=== PATIENT | male | born 1980 | race Caucasian/White ===

== ENCOUNTER → 2021-05-11 09:37 | Outpatient (CLI) | payer BC, SELFPAY | LOC: PSN 09:37 | PROVIDERS: Referring Provider Nurse Practitioner Family; Visit Provider Nurse Practitioner Family | DX: R00.0 Tachycardia, unspecified (principal) | CPT/HCPCS: 93225; 93226 ==

== ENCOUNTER → 2021-05-29 13:06 | Outpatient (CLI) | payer BC, SELFPAY ==
--- NOTE | 2021-05-29 13:15 | ECHOCS_ITS ---
Reason For Study: Tachycardia Procedure This was a 2D Doppler, Color Flow transthoracic echocardiogram. The study was technically difficult. Exam performed in department. Left Ventricle Normal LV size. Left ventricular systolic function is normal. The estimated ejection fraction is 55 %. Stage 1 diastolic dysfunction. No regional wall motion abnormalities noted. Right Ventricle Normal RV size. Normal systolic function. Atria Normal left atrium. Normal right atrium. Mitral Valve Normal mitral valve. Tricuspid Valve Normal tricuspid valve. Aortic Valve Normal aortic valve. Pulmonic Valve The pulmonic valve is not well visualized. Great Vessels Normal aortic root. The pulmonary artery is normal size. Normal inferior vena cava. Pericardium/Pleural No pericardial effusion. Medication 22 gauge I.V. with prn adaptor inserted into right arm. Diluted definity 2ml given slow IV push to enhance endocardial definition. MMode/2D Measurements & Calculations LVIDd: 4.3 cm IVSd: 1.4 cm Ao root diam: 2.9 cm LVIDs: 3.5 cm LVPWd: 1.1 cm RVDd: 3.4 cm FS: 20.2 % LAV(MOD-bp): 30.7 ml LVAd ap4: 31.7 cm2 LVAd ap2: 25.2 cm2 LAV(MOD-bp) Indexed: 12.3 ml/m2 LVLd ap4: 8.0 cm LVLd ap2: 8.1 cm LAV(MOD-sp2): 32.2 ml EDV(MOD-sp4): 100.7 ml EDV(MOD-sp2): 66.1 ml LAV(MOD-sp4): 28.8 ml EDV(sp4-el): 106.1 ml EDV(sp2-el): 66.8 ml LVAs ap4: 21.1 cm2 LVAs ap2: 16.0 cm2 LVLs ap4: 7.0 cm LVLs ap2: 7.3 cm ESV(MOD-sp4): 52.1 ml ESV(MOD-sp2): 28.5 ml ESV(sp4-el): 53.5 ml ESV(sp2-el): 29.5 ml EF(MOD-sp4): 48.3 % EF(MOD-sp2): 56.9 % EF(sp4-el): 49.6 % SV(MOD-sp4): 48.7 ml SV(MOD-sp2): 37.7 ml SV(sp4-el): 52.7 ml LA A4 area: 12.3 cm2 LA dimension(2D): 3.8 cm RA A4 area: 12.1 cm2 Doppler Measurements & Calculations MV E max ridge: 94.4 cm/sec Lat Peak E' Ridge: 12.3 cm/sec Med Peak E' Ridge: 5.9 cm/sec MV A max ridge: 107.6 cm/sec E/E' lat: 7.7 E/E' med: 15.9 MV E/A: 0.88 Ao V2 max: 126.7 cm/sec LV V1 max: 107.6 cm/sec PA V2 max: 114.4 cm/sec Ao max P.4 mmHg LV V1 max P.6 mmHg ECHO/Echo Complete W/ Contrast Interpretation Summary Normal LV size. Left ventricular systolic function is normal. The estimated ejection fraction is 55 %. Stage 1 diastolic dysfunction. Contrast injection was performed. Ordering Physician: Librado Yee/Kareem Marshall Referring Physician: Librado Yee Performed By: Meagan Timmons RDCS
== END ==
LOC: CVS 13:07
PROVIDERS: Referring Provider Nurse Practitioner Family; Visit Provider Nurse Practitioner Family
DX: R00.0 Tachycardia, unspecified (principal); I10 Essential (primary) hypertension
CPT/HCPCS: 93306; Q9957; A4216; C8929; J3490

== ENCOUNTER 2021-09-14 11:09 | Outpatient (CLI) | payer OTHER, SELFPAY ==
[2021-09-14 12:12] LABS: T4 Free Direct 1.32 ng/dL (0.76-1.46); Thyroid Stim Hormone (TSH) 1.35 uIU/mL (0.358-3.74)
== END 2021-09-14 23:59 | disposition short-term general hospital (02) ==
LOC: LAB 11:12
PROVIDERS: Referring Provider Nurse Practitioner Family; Visit Provider Nurse Practitioner Family
DX: R00.0 Tachycardia, unspecified (principal); I10 Essential (primary) hypertension; E78.5 Hyperlipidemia, unspecified
CPT/HCPCS: 36415; 84439; 84443

== ENCOUNTER 2021-09-23 06:53 | Outpatient (CLI) | payer OTHER, SELFPAY ==
--- NOTE | 2021-09-23 18:09 | STRESSREP_ITS ---
Stress Test Report Exercise myocardial perfusion stress test. 41-year-old man with a history of chest discomfort. Stress protocol: Resting EKG demonstrates normal sinus rhythm with a rate of 74 bpm normal intervals are noted resting blood pressure is 118/78 mmHg. T wave inversion is noted in aVL and V2. The patient exercised according to regular Dale protocol for total duration of 3 minutes and 30 seconds. The maximum heart rate attained was 169 bpm which was 94% of max impact at heart rate the maximum workload was 5.8 metabolic equivalents. At rest the T wave inversions noted above were noted. And at peak exercise there were no obvious ST or T wave changes noted to suggest ischemia. The test was terminated due to dyspnea and mild chest pain. The dyspnea appeared to be moderately severe. The peak blood pressure was 160/72 mmHg. Myocardial perfusion protocol. 14.7 mCi of technetium 99m sestamibi was injected at rest. Patient exercised ac cording to regular Dale protocol for total duration of 3 minutes and 30 seconds. At peak exercise 44.9 mCi of technetium 99m sestamibi was injected stress images were obtained stress and rest images were reconstructed and compared in the short axis vertical long and horizontal long axis. Gated images were also obtained per Perfusion SPECT analysis: Review of the stress images demonstrate a normal cardiac silhouette size. There is a medium size defect noted involving the anterior septal wall apex as well as a small perfusion defect noted in the basal inferior wall. The resting images demonstrate complete reversibility of the basal inferior wall defect and moderate reversibility noted in the anteroseptal and apical wall defect. The above is suggestive of anterior and basal inferior ischemia. Cardiomyopathy cannot be completely excluded. Gated SPECT analysis: The gated ejection fraction is 42%. Conclusion: Abnormal exercise myocardial perfusion stress test at a moderate workload with evidence of anteroseptal and apical ischemia, and basal inferior ischemia. Reduced ejection fraction.
== END 2021-09-23 23:59 | disposition short-term general hospital (02) ==
LOC: CVS 06:56
PROVIDERS: Referring Provider Nurse Practitioner Family; Visit Provider Nurse Practitioner Family
DX: R07.9 Chest pain, unspecified (principal); R00.0 Tachycardia, unspecified; I10 Essential (primary) hypertension; E78.5 Hyperlipidemia, unspecified
CPT/HCPCS: 78452; 93017; A9500; A4216

== ENCOUNTER 2021-09-30 08:34 | Observation (INO) | payer OTHER, SELFPAY ==
[2021-09-25 13:09] LABS: Absolute Lymphocyte Count 3.27 X10^3/uL (0.83-4.51); Absolute Neutrophil Count 5.2 X10^3/uL (2.0-7.7); Basophil# 0.06 X10^3/uL; Basophil% 0.6 % (0-1); Eosinophil# 0.19 X10^3/uL; Hematocrit 42.7 % (40-54); Hemoglobin 15.1 g/dL (13.0-16.5); Lymphocyte # 3.27 X10^3/ul (0.83-4.51); Lymphocyte % 34.2 % (19-41); Mean Corp Hgb Conc 35.4 g/dL (32-36); Mean Corpuscular Hgb 30.8 pg (27.0-32.0); Mean Corpuscular Volume 87.1 fL (80-94); Mean Platelet Vol. 10.1 fl (6.2-12.0); Monocyte# 0.78 X10^3/uL; Monocyte% 8.2 % (0-10); NRBC Flagged by Analyzer 0 % (0-5); Neutrophil # 5.21 X10^3/uL (2.7-7.7); Neutrophil % 54.4 % (47-70); Platelet Count 282 K/mm3 (150-450); RBC Distribution Width CV 12.1 % (11.6-14.6); RBC Distribution Width SD 37.8 fl (35.1-43.9); White Blood Count 9.6 K/mm3 (4.4-11.0)
[2021-09-25 13:41] LABS: Anion Gap 7 (5-15); BUN 11 mg/dL (7-18); Calcium,Total 8.8 mg/dL (8.5-10.1); Chloride 108 mmol/L (98-107); EST Glomerular Filtration Rate 78 mL/min (>60); Est Glom Filt Rate - Afr Amer 94 mL/min (>60); Glucose 263 mg/dL (74-106); Potassium 4.2 mmol/L (3.5-5.1); Sodium Level 135 mmol/L (136-145)
[2021-09-29 08:11] VITALS: BMI 41.8
[2021-09-30] VITALS (17 sets, daily range): BP systolic 118–147; BP diastolic 73–105; PULSE 81–97; RESP 16–18; TEMP 36.4–36.6; O2SAT 95–99; BMI 41.5
--- NOTE | 2021-09-30 08:46 | CL.D_ITS ---
Patient Name: RAQUEL HERNÁNDEZ Study Date: 09/30/2021 Performing: Kareem Marshall MD Ht: 70.07 inches 178 cm : 1980 Wt: 291.01 lbs 132 kg Age: 41 Gender: male BSA: 2.45 PROCEDURE(S) PERFORMED DC01-(10602)LHC/COR/LV DC11-(78267)AO ROOT ANGIO WITH HEART CATH CLINICAL PROFILE AND INDICATIONS Indications: Suspected CAD Heart Failure: None Stress/Imaging Date: 09/19/20 CAD Presentations: Unstable angina. CONCLUSIONS Significant LAD disease and moderately severe diagonal vessel disease Anomalous LCX origin RECOMMENDATIONS Referred for immediate PCI DESCRIPTION OF PROCEDURE The patient arrived to the procedure lab. The risks and benefits of the procedure as well as a full d escription of our services here and current unavailability of surgical backup were fully explained to the patient and/or their significant other prior to the catheterization. The Timeout was completed, verifying the correct patient and procedure. The patient's procedural site was prepped and draped in the usual fashion. Local anesthetic was given subcutaneously to right radial region with Lidocaine 2% . Using a modified Seldinger technique, arterial access was obtained via the right radial artery, a 6 Fr sheath was inserted. Right Coronary Artery selective angiography was then performed in multiple v iews using a 5 Fr. 4.0 [place] catheter. Left Coronary Artery selective angiography was performed in mu ltiple views using a 5 Fr. 4.0 [place] catheter. CORONARY ANGIOGRAPHY DOMINANCE: Right Dominant LEFT HEART ASSESSMENT Left Ventricular Ejection Fraction: by Echo 55 % Normal LV wall motion Normal Left Ventricular systolic function LEFT MAIN: Angiographically normal LEFT ANTERIOR DESCENDING ARTERY: MID LAD: 80 % Stenosis DIAGONAL 2: Proximal - 80 Percent bifurcating lesion. 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 RIGHT CORONARY ARTERY: Ostial 60% stenosis with rest of the vessel with luminal irregularities of librado roximately 30 to 40% COMPLICATIONS PROCEDURE MEDICATIONS Versed 1 mg IV Fentanyl 50 mcg IV Versed 1 mg IV Versed 1 mg IV Oxygen: 2 L/min via nasal cannula Brilinta 180 mg PO @ 09/30/2021 08:28:26 Heparin 7000 unit(s) IV 09/30/2021 08:37:19 Heparin given IA 09/30/2021 08:38:49 Verapamil 2.5mg, Ntg 100mcgs, 3000 units of Heparin given IA 09/30/2021 08:38:49 SUMMARY OF HEMODYNAMIC DATA Time AIR REST ECG 07:11:17 Art 157/82 (106) 08:00:24 AO 126/94 (108) SA 08:11:48 Signed By Kareem Marshall MD On 09/30/2021 8:45:05 AM Kareem Marshall MD
--- NOTE | 2021-09-30 10:00 | CRPHASE1_ITS ---
Patient Communication PHII Cardiac Rehab Discussed with Patient:: Yes Guide to Cardiac Rehab Given to Patient:: Yes Cardiac Rehab Facility Choice List Given to Patient:: Yes Choice Program [facility] PHII:: Communication Given to CR Preventative Maintenance Technician:: Ronni Flaherty Refer Phase II Cardiac Rehab:: Yes Sessions:: 36 sessions - 3 days/wk, 12 weeks Cardiac Rehabilitation Info Cardiac Rehabilitation Program Information: Cardiac Rehabilitation is important for patients like you who are recovering from a heart problem. Cardiac rehabilitation programs are recognized as integral to the continued care of the patient with coronary heart disease. The cardiac rehabilitation program is designed to optimize a patient's physical, psychological, and social functioning. Health home care coordinator work in cardiac rehabilitation programs and assist you with getting the treatments you need to get stronger and healthier - like exercise, healthy eating habits, and med ications. Cardiac rehabilitation has been show to help people with heart problems live longer and have better life enjoyment than people who do not go to cardiac rehabilitation. Please contact the Cardiac Rehabilitation Program at [facility] at in two weeks if you have not heard from them.
--- NOTE | 2021-09-30 10:02 | CRPH1.INSTRU ---
General Education CAD and cardiac anatomy and function:: Patient communicates acknowledgment, Family communicates acknowledgment Explanation of diagnoses and procedures:: Patient communicates acknowledgment, Family communicates acknowledgment Sign/Symptoms of WI:: Patient communicates acknowledgment, Family communicates acknowledgment Antiplatelet therapy: Patient communicates acknowledgment, Family communicates acknowledgment Proper use of NTG-SL: Patient communicates acknowledgment, Family communicates acknowledgment Emergency procedures and activation of EMS: Patient communicates acknowledgment, Family communicates acknowledgment Compliance of all prescribed medications: Patient communicates acknowledgment, Family communicates acknowledgment Smoking Patient Nicotine/Smoking Risk Factors Are:: Non-smoker Recommendations Include:: Previous smoker; encourage continued cessation Nicotine/Smoking Response Code:: Patient communicates acknowledgment, Family communicates acknowledgment Dyslipidemia Patient Dyslipidemia Risk Factors Are:: Total Cholesterol, HDL, LDL Recommendations Include:: Lipid profile not available, Reviewed NCEP/ATP guidelines, Therapeutic Lifestyle Change dietary guidelines Dyslipidemia Response Code:: Patient communicates acknowledgment, Family communicates acknowledgment Overweight/Obesity Patient Overweight/Obesity Risk Factors Are:: Obesity - > or = 30 Recommendations Include:: Weight loss of 5-10%, Reduced calorie diet, Exercise 5-7 times/week Overweight/Obesity:: Patient communicates acknowledgment, Family communicates acknowledgment Hypertension Recommendations Include:: BP <130/80 if diabetic, DASH dietary guidelines, Decrease/maintain normal body weight, Moderation of ETOH Hypertension:: Patient communicates acknowledgment, Family communicates acknowledgment Heart Disease Patient Heart Disease Risk Factors Are:: Family history of heart disease < 65 years old Recommendations Include:: Educated family members of their risk, Educated family members of importance of prevention of heart disease Heart Disease Response Code:: Patient communicates acknowledgment, Family communicates acknowledgment Diabetes Patient Diabetes Risk Factors Are:: Elevated blood sugars Recommendations Include:: Maintain fasting blood sugars 70-110 md/dL, Maintain HgbA1c of 6% or less, Monitor blood sugar as prescribed, Diabetic dietary guidelines, Decrease/maintain body weight Diabetes:: Patient communicates acknowledgment, Family communicates acknowledgment
--- NOTE | 2021-09-30 10:30 | EKG12_ITS ---
Test Reason : Blood Pressure : / mmHG Vent. Rate : 082 BPM Atrial Rate : 082 BPM P-R Int : 156 ms QRS Dur : 068 ms QT Int : 378 ms P-R-T Axes : 038 -01 037 degrees QTc Int : 441 ms Normal sinus rhythm Inferior infarct , age undetermined Anteroseptal infarct , age undetermined Abnormal ECG No previous ECGs available Confirmed by AZUL ROLDAN, RAIZA ([id number]), commercial production editor JOYCE HAGAN ([id number]) on 10/01/2021 11:20:23 AM Referred By: Kareem Marshall Confirmed By:AKIL LIANG MD
[2021-09-30] MEDS: 0.9% Normal Saline 1,000 ML 80 ML IV (10:54)
--- NOTE | 2021-09-30 11:01 | CL.I_ITS ---
Patient Name: RAQUEL HERNÁNDEZ Study Date: 09/30/2021 Performing: Oanh Flaherty MD Ht: 70 inches 178 cm : 1980 Wt: 291.4 lbs 132 kg Age: 41 Gender: male BSA: 2.45 PROCEDURE(S) PERFORMED DC11-(25508)AO ROOT ANGIO WITH HEART CATH IC12-(35966/C9600)DELPHINE W/WO PTCA, SINGLE CORONARY ARTERY IC13-(95036/C9600)DELPHINE W/WO PTCA, EACH ADD'L ART, SAME MAJOR CLINICAL PROFILE AND CO-MORBIDITIES Indications: Suspected CAD Heart Failure: None Stress/Imaging Date: 09/19/20 CAD Presentations: Unstable angina. CONCLUSIONS Succesful PCI of mLAD and pD2 with DELPHINE RECOMMENDATIONS DESCRIPTION OF PROCEDURE The patient arrived to the procedure lab. The risks and benefits of the procedure as well as a full d escription of our services here and current unavailability of surgical backup were fully explained to the patient and/or their significant other prior to the catheterization. The Timeout was completed, verifying the correct patient and procedure. The patient's procedural site was prepped and draped in the usual fashion. Local anesthetic was given subcutaneously to right radial region with Lidocaine 2% Using a modified Seldinger technique,arterial access was obtained via the right radial artery, a 6Fr sheath was inserted. Right Coronary Artery selective angiography was then performed in multiple view s using a 5 Fr. 4.0 [place] catheter. Left Coronary Artery selective angiography was performed in multi ple views using a 5 Fr. 4.0 [place] catheter.The images were reviewed and options discussed. A decision was then made to proceed with an Intervention, IVUS or other adjunct procedure. xb 3 cordis Guide catheter was inserted and engaged into the LCA. bmw Guide wire was advanced to the LAD. emerge 2.5 x 12 Balloon catheter was advanced across lesion in the LAD, mid. PTCA balloon in flated at 6 atms for 10 secs. PTCA balloon inflated at 10 atms for 26 secs. Angiogram performed post balloon dilatation. osiro 3.0 x 13 Drug Eluting stent was advanced across the lesion in the LAD, mid. Angiogram performed post stent deployment. bmw Guide wire was repositioned to the 2nd Diagonal emerg e 2.5 x 12 Balloon catheter was advanced across lesion in the second diagonal, ostial PTCA balloon in flated at 6 atms for 16 secs. PTCA balloon inflated at 6 atms for 17 secs. Angiogram performed post b alloon dilatation. osiro 2.75 x 26 Drug Eluting stent was advanced across the lesion in the second di agonal, ostial Angiogram performed post stent deployment. The arterial sheath was pulled and a TR B and was applied for hemostasis INTERVENTION INFORMATION LESION SITE: LAD (Mid) Lesion Complexity: High/C, chronic total occlusion: No, lesion at bifurcation: No, thrombus present: No, lesion length: 12 mm, culprit lesion: Yes, Previously treated lesion: No Pre Stenosis: 95 % Pre intervention CHAN flow: 3 PROCEDURE: Drug Eluting Stent with pre dilatation. Post Stenosis: 0 % Post intervention CHAN flow: 3 Lesion Devices: Simple.TV MR 2.50x12 BALLOON [employer] MR DELPHINE 3.0x13 LESION SITE: 2nd Diagonal (Ostial) Lesion Complexity: High/C, chronic total occlusion: No, lesion at bifurcation: Yes, thrombus present: No, lesion length: 22 mm, culprit lesion: Yes, Previously treated lesion: No Pre Stenosis: 80 % Pre intervention CHAN flow: 3 PROCEDURE: Drug Eluting Stent with pre dilatation. Post Stenosis: 0 % Post intervention CHAN flow: 3 Lesion Devices: Simple.TV MR 2.50x12 BALLOON [employer] MR DELPHINE 2.75x26 COMPLICATIONS No Complications PROCEDURE MEDICATIONS Versed 1 mg IV Fentanyl 50 mcg IV Versed 1 mg IV Versed 1 mg IV Oxygen: 2 L/min via nasal cannula Brilinta 180 mg PO @ 09/30/2021 08:28:26 Heparin 7000 unit(s) IV 09/30/2021 08:37:19 Heparin given IA 09/30/2021 08:38:49 Nitro 200 mcg IC 09/30/2021 09:02:36 Verapamil 2.5mg, Ntg 100mcgs, 3000 units of Heparin given IA 09/30/2021 08:38:49 SUMMARY OF HEMODYNAMIC DATA Time AIR REST ECG 07:11:17 Art 157/82 (106) 08:00:24 AO 126/94 (108) SA 08:11:48 Signed By Oanh Flaherty MD On 09/30/2021 11:00:30 Oanh Flaherty MD
--- NOTE | 2021-09-30 12:52 | CHAPLAIN ---
Type of Pastoral Visit _x__ Initial Visit ___ Follow-up Visit ___ On-call Visit ___ General Patient Visit ___ Spiritual Assessment ___ Family Conference ___ Bereavement ___ Rapid Response ___ Code Blue ___ Other (describe below) Pastoral Care Referral From _x__ Patient ___ Family ___ Nurse ___ Physician ___ Director Mission ___ Sr. Unix System Administrator ___ Other (describe below) Sacrament/Intervention _x__ Active listening ___ Anointing ___ Pentecostal ___ Bereavement ___ Communion ___ Barbara exploration ___ ___ Life review ___ Prayer ___ Reconciliation ___ Sacrament of Sick _x__ Supportive presence ___ Wedding ___ Other (describe below) Pastoral Comments patient states he had two stents put in this morning; pt reports his feelings as I'm fine and I'm annoyed that I'm here; pt goes on to say he has not worked in a month due to his health and he just wants to get back to work and healthy; mother of patient in the room
[2021-09-30] MEDS: glipiZIDE 10 MG Tablet PO (13:21)
[2021-09-30] MEDS: Gabapentin 600 MG Tablet PO ×2 (13:21→22:01)
[2021-09-30] MEDS: Methocarbamol 500 MG Tablet 1000 MG PO ×3 (13:21→22:01)
--- NOTE | 2021-09-30 15:52 | CASEMGMT ---
Pt to be sent home on Brilinta at discharge and pt provided with Brilinta co-pay card with instructions, voices understanding. Valeri MOELLER CM
[2021-09-30] MEDS: Atorvastatin Calcium 40 MG Tablet PO (22:01)
[2021-09-30] MEDS: Metoprolol Tartrate 25 MG Tablet PO (22:01)
[2021-09-30] MEDS: Colchicine 0.6 MG TABLET PO (22:01)
[2021-09-30] MEDS: TICAGRELOR 90 MG TABLET PO (22:01)
[2021-09-30] MEDS: 0.9% Saline Lock 10 ML Syringe IV (22:02)
[2021-10-01] VITALS (7 sets, daily range): BP systolic 106–123; BP diastolic 67–79; PULSE 78–98; RESP 17–18; TEMP 36.3–36.7; O2SAT 99–100
[2021-10-01] MEDS: Gabapentin 600 MG Tablet PO (05:10)
[2021-10-01 06:06] LABS: Hematocrit 42.1 % (40-54); Hemoglobin 14.2 g/dL (13.0-16.5); Mean Corp Hgb Conc 33.7 g/dL (32-36); Mean Corpuscular Volume 88.8 fL (80-94); Mean Platelet Vol. 10.6 fl (6.2-12.0); Platelet Count 207 K/mm3 (150-450); RBC Distribution Width CV 12.3 % (11.6-14.6); RBC Distribution Width SD 39.5 fl (35.1-43.9); Red Blood Count 4.74 M/mm3 (4.6-6.2); White Blood Count 10.2 K/mm3 (4.4-11.0)
[2021-10-01] MEDS: glipiZIDE 10 MG Tablet PO (06:49)
[2021-10-01 06:55] LABS: AST(SGOT) 26 U/L (15-37); Alanine Aminotransfer ALT/SGPT 48 U/L (16-61); Albumin, Serum 3.6 g/dL (3.2-5.0); Alkaline Phosphatase 82 U/L (45-117); Anion Gap 6 (5-15); BUN 13 mg/dL (7-18); BUN/Creat Ratio 13.6 RATIO (10-20); Calcium,Total 9.2 mg/dL (8.5-10.1); Chloride 104 mmol/L (98-107); Creatinine, Serum 0.96 mg/dL (0.70-1.30); EST Glomerular Filtration Rate 92 mL/min (>60); Est Glom Filt Rate - Afr Amer 111 mL/min (>60); Globulin 3.5 g/dL (2.2-4.2); Glucose 151 mg/dL (74-106); Potassium 4.1 mmol/L (3.5-5.1); Protein, Total 7.1 g/dL (6.4-8.2); Sodium Level 136 mmol/L (136-145)
[2021-10-01] MEDS: Pantoprazole Sodium 20 MG Tablet PO (08:33)
[2021-10-01] MEDS: LINAGLIPTIN 5 MG TABLET PO (08:33)
[2021-10-01] MEDS: Methocarbamol 500 MG Tablet 1000 MG PO (08:33)
[2021-10-01] MEDS: Metoprolol Tartrate 25 MG Tablet PO (08:33)
[2021-10-01] MEDS: Loratadine 10 MG Tablet PO (08:34)
[2021-10-01] MEDS: TICAGRELOR 90 MG TABLET PO (08:34)
[2021-10-01] MEDS: Colchicine 0.6 MG TABLET PO (08:34)
[2021-10-01] MEDS: Aspirin E.C. 81 MG Tablet PO (08:34)
[2021-10-01] MEDS: DULoxetine Hcl 20 MG Capsule PO (08:34)
[2021-10-01] MEDS: Acetaminophen 325 MG Tablet 650 MG PO (09:08)
--- NOTE | 2021-10-01 09:30 | PCM.PN.CARD ---
Subjective Subjective Patient seen and evaluated. Appears to be doing well. No cardiac issues Objective Data Vital Signs: Vital Signs Temp Pulse Resp BP Pulse Ox 97.4 F L 89 18 106/67 100 10/01/21 08:29 10/01/21 08:33 10/01/21 08:29 10/01/21 08:33 10/01/21 08:29 Oxygen Flow Rate (L/min) 2 Oxygen Delivery Method Room Air Weight: 289 lb 2 oz Body Mass Index (BMI) 41.5 Intake & Output: Intake and Output for Last 24 Hours 09/29/21 09/30/21 10/01/21 23:59 23:59 23:59 Intake Total 1529.33 / 2029.33 620 / 620 Output Total 1600 / 2200 600 / 600 Balance -70.67 / -170.67 Lab / Micro Data Result Diagrams: 10/01/21 05:12 10/01/21 05:12 Labs: Laboratory Results - last 24 hr 10/01/21 05:12: WBC 10.2, RBC 4.74, Hgb 14.2, Hct 42.1, MCV 88.8, MCH 30.0, MCHC 33.7, RDW Std Deviation 39.5, RDW Coeff of Kiki 12.3, Plt Count 207, MPV 10.6 10/01/21 05:12: Sodium 136, Potassium 4.1, Chloride 104, Carbon Dioxide 26.0, Anion Gap 6, BUN 13, Creatinine 0.96, Estim Creat Clear Calc 103.50, Est GFR (MDRD) Af Amer 111, Est GFR (MDRD) Non-Af 92, BUN/Creatinine Ratio 13.6, Glucose 151 H, Calcium 9.2, Total Bilirubin 0.80, AST 26, ALT 48, Alkaline Phosphatase 82, Total Protein 7.1, Albumin 3.6, Globulin 3.5, Albumin/Globulin Ratio 1.0 Cardiology Labs/Tests 10/01/21 05:12: WBC 10.2, RBC 4.74, Hgb 14.2, Hct 42.1, MCV 88.8, MCH 30.0, MCHC 33.7, Plt Count 207, MPV 10.6 10/01/21 05:12: Sodium 136, Potassium 4.1, Chloride 104, Carbon Dioxide 26.0, Anion Gap 6, BUN 13, Creatinine 0.96, Est GFR (MDRD) Af Amer 111, Est GFR (MDRD) Non-Af 92, BUN/Creatinine Ratio 13.6, Glucose 151 H, Calcium 9.2, Total Bilirubin 0.80 Rhythm: EKG: ECHO: Stress Test: Cardiac Cath: PCI: CT Surgery: Holter monitor: EPS: PPM: CXR: Chest CT Scan: Physical Exam Const alert, oriented x3 and no apparent distress General Appearance: cooperative HEENT hearing grossly normal bilaterally Head and Scalp: atraumatic Eyes EOMs intact bilaterally Neck General: normal visual inspection Chest inspection of chest normal and palpation of chest normal Resp normal respiratory effort Auscultation: clear to auscultation bilaterally Cardio regular rate, regular rhythm, S1 normal heart sound and S2 normal heart sound Jugular Venous Distention: JVD GI normal to inspection, nondistended, normoactive bowel sounds Extremity normal capillary refill and no pedal edema Peripheral Pulses: Yes pulses 2+ throughout and femoral pulses present Skin no rashes or lesions noted Neuro oriented x3 and CN's II-XII intact bilaterally Psych Appearance: grossly normal and appropriate Assessment & Plan Assessment/Plan (1) History of coronary artery stent placement: PLAN: Patient is status post angioplasty and stenting of the mid left anterior descending artery as well as the diagonal branch. Patient does have residual disease noted in the ostial right coronary artery. This will be scheduled as an outpatient at a later date. The patient can be discharged on standard medical therapy. (2) Essential hypertension: PLAN: Blood pressure appears to be well controlled will not make any changes at this time (3) Hyperlipidemia: PLAN: We will continue with aggressive risk factor modification.
--- NOTE | 2021-10-01 09:34 | PCM.DC ---
Discharge Instructions Diet Discharge Diet: No restrictions (You may continue your normal diet.) Activity Lifting Restrictions: 10 pounds and also avoid any pushing or pulling for 3 days after your test. Additional Activity Instructions:: You must have someone drive you home. Do not drive until instructed by your doctor. You must have someone stay with you all night after your test. Rest in bed or on the couch until the next morning. Limit the number of times you go up and down stairs the day of your test. Apply pressure to the puncture site if you sneeze or cough. Dressing / Incision Call your doctor if your incision/area has: Increased Pain/ Swelling, Increased Redness, Foul Smelling Discharge and Swelling at the incision site Call your doctor if you observe: Fever of 101 or Higher Additional Dressing/Incision Instructions:: Keep the dressing (bandage) on until the next morning. You may then shower, but do not take a tub bath for 5 days after your test. It is normal to have some tenderness and discomfort at the puncture site. Sometimes bruising also occurs. However, if pain, numbness, or coldness occurs below the puncture site (in your leg, toes, arms or fingers) call your doctor at once. You may have a small, marble sized knot at the puncture site. This is normal. Do not rub it. It will go away in 4-6 weeks. Bleeding can occur from the area where the puncture was done. Blood may spurt or drip from the site. If blood spurts, apply pressure right away to stop bleeding and call 911. Although rare, bleeding into the tissue (hematoma) can also occur. If this happens, a large, firm area goose egg under the skin will appear. If any of these occur, lie down as flat as you can and have someone apply firm pressure to the cath site with a gauze pad or a clean washcloth for 10-15 minutes. Call 911 or go to the Emergency Department. Follow Up Care Test Results: Test results from this visit will be discussed in further detail at your follow-up appointment, if applicable. Discharge Plan Admission Admit Date/Time: 09/30/21 08:34 Attending Provider: Kareem Marshall Consulting Providers: Librado Yee NP Discharge Orders/Prescriptions Prescriptions: New Brilinta 90 mg Tablet 90 mg PO BID Qty: 180 RF: 2 Continued duloxetine 20 mg capsule,delayed release(DR/EC) 20 mg PO DAILY RF: 0 metformin 500 mg tablet extended release 24 hr 500 tablet PO DAILY RF: 0 gabapentin 600 mg tablet 600 mg PO TID RF: 0 omeprazole 20 mg capsule,delayed release(DR/EC) 20 mg PO DAILY RF: 0 loratadine 10 mg tablet 10 mg PO DAILY RF: 0 glipizide 10 mg tablet 10 mg PO BID RF: 0 methocarbamol 500 mg tablet 500 mg PO .qid RF: 0 colchicine 0.6 mg tablet 0.6 mg PO BID RF: 0 Januvia 100 mg tablet 100 mg PO DAILY RF: 0 metoprolol tartrate 25 mg tablet 25 mg PO BID RF: 0 aspirin [Adult Low Dose Aspirin] 81 mg tablet,delayed release (DR/EC) 81 mg PO DAILY RF: 0 atorvastatin 20 mg tablet 40 mg PO DAILY RF: 0 Referrals / Follow Up: Kim Puri [Other] Disposition Disposition (needs filled in before D/C Order can be placed): Home, Self Care
--- NOTE | 2021-10-01 10:00 | EKG12_ITS ---
Test Reason : AM EKG Blood Pressure : / mmHG Vent. Rate : 073 BPM Atrial Rate : 073 BPM P-R Int : 152 ms QRS Dur : 076 ms QT Int : 392 ms P-R-T Axes : 039 007 042 degrees QTc Int : 431 ms Normal sinus rhythm with sinus arrhythmia T wave abnormality, consider anterior ischemia Abnormal ECG When compared with ECG of 30-SEP-2021 11:10, MANUAL COMPARISON REQUIRED, DATA IS UNCONFIRMED Confirmed by AZUL ROLDAN, RAIZA ([id number]), index editor JOYCE HAGAN ([id number]) on 10/01/2021 11:19:00 AM Referred By: Kareem Marshall Confirmed By:AKIL LIANG MD
== END 2021-10-01 09:34 | disposition home or self-care (01) ==
LOC: PCU 10:11
PROVIDERS: Nurse Practitioner Family; Specialist; Admitting Provider Internal Medicine Cardiovascular Disease; Referring Provider Internal Medicine Cardiovascular Disease; Visit Provider Internal Medicine Cardiovascular Disease
DX: I25.110 Atherosclerotic heart disease of native coronary artery with unstable angina pectoris (principal); E11.9 Type 2 diabetes mellitus without complications; E78.5 Hyperlipidemia, unspecified; I10 Essential (primary) hypertension; R00.0 Tachycardia, unspecified; M10.9 Gout, unspecified; R06.02 Shortness of breath; Z79.899 Other long term (current) drug therapy; Z79.84 Long term (current) use of oral hypoglycemic drugs; Z79.82 Long term (current) use of aspirin; Z86.16 Personal history of COVID-19
CPT/HCPCS: 36415; 80048; 80053; 85025; 85027; 92928; 92929; 93005; 93454; 93567; 96360; 96361; 99152; 99153; 99218; 99406; C1874; J7030; J7040; Q9967; A4216; C1725; C1769; C1887; C1894; C9600; C9601; G0378; J1327

== ENCOUNTER 2021-10-29 08:29 | Day surgery (SDC) | payer OTHER, SELFPAY ==
[2021-10-28 07:57] VITALS: BMI 41.5
--- NOTE | 2021-10-29 12:00 | EKG12_ITS ---
Test Reason : POST PCI Blood Pressure : / mmHG Vent. Rate : 087 BPM Atrial Rate : 087 BPM P-R Int : 146 ms QRS Dur : 070 ms QT Int : 362 ms P-R-T Axes : 038 002 031 degrees QTc Int : 435 ms Normal sinus rhythm Nonspecific ST abnormality Abnormal ECG When compared with ECG of 01-OCT-2021 05:39, T wave inversion no longer evident in Anterior leads Confirmed by AZUL ROLDAN, RAIZA ([id number]), international editorial producer JOYCE HAGAN ([id number]) on 10/30/2021 1:46:47 PM Referred By: Ronni Flaherty Confirmed By:AKIL FLAHERTY MD
--- NOTE | 2021-10-29 12:12 | CL.I_ITS ---
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 The risks and benefits of the procedure as well as a full d escription of our services here and current unavailability of surgical backup were fully explained to the patient and/or their significant other prior to the catheterization. The Timeout was completed, verifying the correct patient and procedure. The patient's procedural site was prepped and draped in the usual fashion. Local anesthetic was given subcutaneously to right radial region with Lidocaine 2% . Using a modified Seldinger technique, arterial access was obtained via the right radial artery, a 6 Fr sheath was inserted.. AL 1 SH Guide catheter was inserted and engaged into the RCA. BMW Guide wire was advanced to the RCA. Runthrough Guide wire was advanced to the Circumflex. Emerge 2x8 Balloon catheter was inserted. Balloon catheter was advanced across lesion in the circumflex, proximal. PTCA balloon inflated at 8 a tms for 11 secs. PTCA balloon inflated at 8 atms for 10 secs. PTCA balloon inflated at 8 atms for 8 s ecs. PTCA balloon inflated at 8 atms for 8 secs. Orsiro2.25x13 Drug Eluting stent was inserted. Drug Eluting stent was advanced across the lesion in the circumflex, proximal. Angiogram performed post st ent deployment. Angiogram performed post balloon dilatation. 2.25x15 Orsiro Drug Eluting stent was in serted. Drug Eluting stent was advanced across the lesion in the circumflex, proximal. Angiogram perf ormed post stent deployment. 3.5x8 Emerge Balloon catheter was inserted. Balloon catheter was advance d across lesion in the right coronary, ostial. PTCA balloon inflated at 6 atms for 10 secs. 3.5x15 Orsiro Drug Eluting stent was inserted. Drug Eluting stent was advanced across the lesio n in the right coronary, ostial. Angiogram performed post stent deployment. 1.5x8 Emerge Balloon cath eter was inserted. Drug Eluting stent was advanced across the lesion in the circumflex, proximal. PTC A balloon inflated at 12 atms for 16 secs. PTCA balloon inflated at 12 atms for 6 secs. 2.25x8 Emerge Balloon catheter was inserted. Balloon catheter was advanced across lesion in the circumflex, proxim al./ostial 3.5x8 Emerge Balloon catheter was inserted. Balloon catheter was advanced across lesion in the right coronary, ostial. Angiogram performed post balloon dilatation. The arterial sheath was pu lled and a TR Band was applied for hemostasis.10cc of air applied INTERVENTION INFORMATION LESION SITE: Circumflex (Proximal) Lesion Complexity: High/C, chronic total occlusion: No, lesion at bifurcation: Yes, thrombus present: No, lesion length: 15 mm, culprit lesion: Yes, Previously treated lesion: No Pre Stenosis: 80 % Pre intervention CHAN flow: 3 PROCEDURE: Drug Eluting Stent with pre and post dilatation We avoided the ostium as we didn't want to risk difficulty advancing balloon/stent into the RCA as th is was a much larger vessel. Kissing balloon inflation was performed with a 3.5mm balloon in the RCA and 2.25 mm balloon in the anomalous LCx that was jailed by the RCA stent. Post Stenosis: 0 % Post intervention CHAN flow: 3 Lesion Devices: Terumo .014 Runthrough Extra Floppy 180cm straight Ben Sci EMERGE MR 2.00x08 BALLOON Biotronik Orsiro [place] MR DELPHINE 2.25x13 Biotronik Orsiro [place] MR DELPHINE 2.25x15 Ben Sci EMERGE MR 1.50x08 BALLOON Ben Sci EMERGE MR 2.25x08 BALLOON LESION SITE: RCA (Ostial) Lesion Complexity: High/C, chronic total occlusion: No, lesion at bifurcation: Yes, thrombus present: No, lesion length: 8 mm, culprit lesion: Yes, Previously treated lesion: No Pre Stenosis: 80 % Pre intervention CHAN flow: 3 PROCEDURE: Drug Eluting Stent with pre and post dilatation Post Stenosis: 0 % Post intervention CHAN flow: 3 Lesion Devices: Reis .014 BMW [place] Straight 190cm Ben Sci EMERGE MR 3.50x08 BALLOON Biotronik Orsiro [place] MR DELPHINE 3.5x15 COMPLICATIONS No Complications PROCEDURE MEDICATIONS Fentanyl 50 mcg IV Versed 1 mg IV Oxygen: 2 L/min via nasal cannula Heparin given IA 10/29/2021 10:34:15 Heparin 7000 unit(s) IV 10/29/2021 10:35:15 Heparin 1000 unit(s) IV 10/29/2021 11:24:11 Nitro 200 mcg IC 10/29/2021 11:29:04 Verapamil 2.5mg, Ntg 100mcgs, 3000 units of Heparin given IA 10/29/2021 10:34:15 SUMMARY OF HEMODYNAMIC DATA Time AIR REST ECG 08:55:02 ECG 10:18:09 AO 118/84 (97) SA 10:37:38 Signed By Oanh Flaherty MD On 10/29/2021 12:11:27 Oanh Flaherty MD
--- NOTE | 2021-10-29 13:15 | CRPHASE1 ---
Patient Communication PHII Cardiac Rehab Discussed with Patient:: Yes Guide to Cardiac Rehab Given to Patient:: Yes Cardiac Rehab Facility Choice List Given to Patient:: Yes Choice Program [facility] CR PHII:: Communication Given to CR Choice Program Other:: Communication Given to CR First Line Production Supervisor:: Ronni Flaherty Refer Phase II Cardiac Rehab:: Yes Sessions:: 36 sessions - 3 days/wk, 12 weeks Cardiac Rehabilitation Info Cardiac Rehabilitation Program Information: Cardiac Rehabilitation is important for patients like you who are recovering from a heart problem. Cardiac rehabilitation programs are recognized as integral to the continued care of the patient with coronary heart disease. The cardiac rehabilitation program is designed to optimize a patient's physical, psychological, and social functioning. Health group care worker work in cardiac rehabilitation programs and assist you with getting the treatments you need to get stronger and healthier - like exercise, healthy eating habits, and medications. Cardiac rehabilitation has been show to help people with heart problems live longer and have better life enjoyment than people who do not go to cardiac rehabilitation. Please contact the Cardiac Rehabilitation Program at [facility] at in two weeks if you have not heard from them.
--- NOTE | 2021-10-29 13:16 | CRPH1.INSTRU ---
General Education CAD and cardiac anatomy and function:: Patient communicates acknowledgment Sign/Symptoms of [place]:: Patient communicates acknowledgment Antiplatelet therapy: Patient communicates acknowledgment Smoking Patient Nicotine/Smoking Risk Factors Are:: Non-smoker Recommendations Include:: Previous smoker; encourage continued cessation Nicotine/Smoking Response Code:: Patient communicates acknowledgment Dyslipidemia Patient Dyslipidemia Risk Factors Are:: Total Cholesterol, Triglycerides, HDL, LDL Recommendations Include:: Lipid profile not available, Reviewed NCEP/ATP guidelines, Therapeutic Lifestyle Change dietary guidelines Dyslipidemia Response Code:: Patient communicates acknowledgment Overweight/Obesity Patient Overweight/Obesity Risk Factors Are:: Obesity - > or = 30 Recommendations Include:: Weight loss of 5-10%, Reduced calorie diet, Exercise 5-7 times/week Overweight/Obesity:: Patient communicates acknowledgment Hypertension Recommendations Include:: BP <130/80 if diabetic, DASH dietary guidelines, Decrease/maintain normal body weight, Moderation of ETOH Hypertension:: Patient communicates acknowledgment Diabetes Patient Diabetes Risk Factors Are:: Elevated blood sugars Recommendations Include:: Maintain fasting blood sugars 70-110 md/dL, Maintain HgbA1c of 6% or less, Monitor blood sugar as prescribed, Diabetic dietary guidelines, Decrease/maintain body weight Diabetes:: Patient communicates acknowledgment Sedentary Patient Sedentary Risk Factors Are:: Lack of regular exercise Recommendations Include:: Aerobic exercise 5-7 times/week for 20-30 minutes continuously, Benefits of regular exercise, Discussed home walking program, Monitored Outpatient Cardiac Rehab Sedentary Response Code:: Patient communicates acknowledgment Stress Patient Stress Risk Factors Are:: Patient denies stress as a risk factor
[2021-10-29 16:26] VITALS: PULSE 103
[2021-10-29 16:30] VITALS: BP 130/89; PULSE 88; RESP 16; TEMP 36.7; O2SAT 96
[2021-10-29] MEDS: Gabapentin 600 MG Tablet PO ×2 (16:46→20:35)
[2021-10-29] MEDS: glipiZIDE 10 MG Tablet PO (16:46)
[2021-10-29] MEDS: Methocarbamol 500 MG Tablet 1000 MG PO ×2 (16:46→20:35)
[2021-10-29] MEDS: 0.9% Normal Saline 1,000 ML 70 ML IV (16:47)
--- NOTE | 2021-10-29 18:32 | CPS ---
never called for post PCI ekg at noon.
[2021-10-29 20:00] VITALS: O2SAT 99
[2021-10-29 20:18] VITALS: BP 129/80; PULSE 91; RESP 18; TEMP 36.3; O2SAT 99
[2021-10-29 20:34] VITALS: BP 129/80; PULSE 91
[2021-10-29] MEDS: Metoprolol Tartrate 25 MG Tablet PO (20:34)
[2021-10-29] MEDS: TICAGRELOR 90 MG TABLET PO (20:35)
[2021-10-29 22:27] VITALS: PULSE 150
[2021-10-30 02:20] VITALS: BP 120/84; PULSE 77; RESP 16; TEMP 36.2; O2SAT 98
[2021-10-30] MEDS: Gabapentin 600 MG Tablet PO (05:29)
[2021-10-30 06:30] LABS: Hematocrit 39.1 % (40-54); Hemoglobin 13.8 g/dL (13.0-16.5); Mean Corp Hgb Conc 35.3 g/dL (32-36); Mean Corpuscular Hgb 30.7 pg (27.0-32.0); Mean Corpuscular Volume 87.1 fL (80-94); Mean Platelet Vol. 10.2 fl (6.2-12.0); Platelet Count 221 K/mm3 (150-450); RBC Distribution Width CV 12.2 % (11.6-14.6); RBC Distribution Width SD 38.5 fl (35.1-43.9); Red Blood Count 4.49 M/mm3 (4.6-6.2); White Blood Count 8.4 K/mm3 (4.4-11.0)
[2021-10-30 06:59] VITALS: PULSE 80
[2021-10-30 07:01] LABS: ALB/GLOB Ratio 0.9 RATIO (0.9-2.4); AST(SGOT) 22 U/L (15-37); Alanine Aminotransfer ALT/SGPT 47 U/L (16-61); Albumin, Serum 3.2 g/dL (3.2-5.0); Alkaline Phosphatase 93 U/L (45-117); Anion Gap 5 (5-15); BUN 14 mg/dL (7-18); BUN/Creat Ratio 17.6 RATIO (10-20); Calcium,Total 8.5 mg/dL (8.5-10.1); Chloride 107 mmol/L (98-107); EST Glomerular Filtration Rate 113 mL/min (>60); Est Glom Filt Rate - Afr Amer 137 mL/min (>60); Globulin 3.6 g/dL (2.2-4.2); Glucose 222 mg/dL (74-106); Potassium 4.1 mmol/L (3.5-5.1); Protein, Total 6.8 g/dL (6.4-8.2); Sodium Level 135 mmol/L (136-145)
[2021-10-30 08:03] VITALS: O2SAT 98
[2021-10-30 08:45] VITALS: BP 133/73; PULSE 84; RESP 16; TEMP 36.6; O2SAT 100
[2021-10-30] MEDS: Methocarbamol 500 MG Tablet 1000 MG PO (09:38)
[2021-10-30] MEDS: Loratadine 10 MG Tablet PO (09:38)
[2021-10-30] MEDS: Aspirin E.C. 81 MG Tablet PO (09:38)
[2021-10-30] MEDS: LINAGLIPTIN 5 MG TABLET PO (09:38)
[2021-10-30] MEDS: TICAGRELOR 90 MG TABLET PO (09:38)
[2021-10-30] MEDS: Pantoprazole Sodium 20 MG Tablet PO (09:39)
[2021-10-30] MEDS: glipiZIDE 10 MG Tablet PO (09:39)
[2021-10-30 09:40] VITALS: BP 133/73; PULSE 91
[2021-10-30] MEDS: Metoprolol Tartrate 25 MG Tablet PO (09:40)
[2021-10-30] MEDS: DULoxetine Hcl 20 MG Capsule PO (09:40)
--- NOTE | 2021-10-30 11:59 | PCM.PN.CARD ---
Subjective Subjective Patient seen and evaluated. Appears to be stable. Objective Data Vital Signs: Vital Signs Temp Pulse Resp BP Pulse Ox 97.9 F 91 16 133/73 H 100 10/30/21 08:45 10/30/21 09:40 10/30/21 08:45 10/30/21 09:40 10/30/21 08:45 Oxygen Delivery Method Room Air Weight: 290 lb Body Mass Index (BMI) 41.5 Intake & Output: Intake and Output for Last 24 Hours 10/28/21 10/29/21 10/30/21 23:59 23:59 23:59 Intake Total 480 / 480 890.17 / 890.17 Balance 480 / 480 890.17 / 890.17 Lab / Micro Data Result Diagrams: 10/30/21 05:20 10/30/21 05:20 Labs: Laboratory Results - last 24 hr 10/30/21 05:20: WBC 8.4, RBC 4.49 L, Hgb 13.8, Hct 39.1 L, MCV 87.1, MCH 30.7, MCHC 35.3, RDW Std Deviation 38.5, RDW Coeff of Kiki 12.2, Plt Count 221, MPV 10.2 10/30/21 05:20: Sodium 135 L, Potassium 4.1, Chloride 107, Carbon Dioxide 23.0, Anion Gap 5, BUN 14, Creatinine 0.80, Estim Creat Clear Calc 124.20, Est GFR (MDRD) Af Amer 137, Est GFR (MDRD) Non-Af 113, BUN/Creatinine Ratio 17.6, Glucose 222 H, Calcium 8.5, Total Bilirubin 0.60, AST 22, ALT 47, Alkaline Phosphatase 93, Total Protein 6.8, Albumin 3.2, Globulin 3.6, Albumin/Globulin Ratio 0.9 Cardiology Labs/Tests 10/30/21 05:20: WBC 8.4, RBC 4.49 L, Hgb 13.8, Hct 39.1 L, MCV 87.1, MCH 30.7, MCHC 35.3, Plt Count 221, MPV 10.2 10/30/21 05:20: Sodium 135 L, Potassium 4.1, Chloride 107, Carbon Dioxide 23.0, Anion Gap 5, BUN 14, Creatinine 0.80, Est GFR (MDRD) Af Amer 137, Est GFR (MDRD) Non-Af 113, BUN/Creatinine Ratio 17.6, Glucose 222 H, Calcium 8.5, Total Bilirubin 0.60 Rhythm: EKG: ECHO: Stress Test: Cardiac Cath: PCI: CT Surgery: Holter monitor: EPS: PPM: CXR: Chest CT Scan: Assessment & Plan Assessment/Plan (1) History of coronary artery stent placement: PLAN: He is status post previous angioplasty and stenting of the ostial right coronary artery and anomalous circumflex artery. He is scheduled to be discharged later today.
--- NOTE | 2021-10-30 12:01 | PCM.DC ---
Discharge Instructions Follow Up Care Test Results: Test results from this visit will be discussed in further detail at your follow-up appointment, if applicable. Discharge Plan Admission Attending Provider: Ronni Flaherty Discharge Orders/Prescriptions Prescriptions: No Action duloxetine 20 mg capsule,delayed release(DR/EC) 20 mg PO DAILY RF: 0 gabapentin 600 mg tablet 600 mg PO TID RF: 0 omeprazole 20 mg capsule,delayed release(DR/EC) 20 mg PO DAILY RF: 0 loratadine 10 mg tablet 10 mg PO DAILY RF: 0 glipizide 10 mg tablet 10 mg PO BID RF: 0 metformin 500 mg tablet extended release 24 hr 1,000 mg PO BID RF: 0 methocarbamol 500 mg tablet 1,000 mg PO 4X/DAY RF: 0 Januvia 100 mg tablet 100 mg PO DAILY RF: 0 metoprolol tartrate 25 mg tablet 25 mg PO BID RF: 0 aspirin [Adult Low Dose Aspirin] 81 mg tablet,delayed release (DR/EC) 81 mg PO DAILY RF: 0 Brilinta 90 mg Tablet 90 mg PO BID Qty: 180 RF: 2 atorvastatin 20 mg tablet 40 mg PO DAILY RF: 0 Referrals / Follow Up: KESHIA ROSA [Other] Disposition Disposition (needs filled in before D/C Order can be placed): Home, Self Care
== END 2021-10-30 12:01 | disposition home or self-care (01) ==
LOC: CLSP 08:38 → PCU 16:12
PROVIDERS: Referring Provider Specialist; Visit Provider Specialist
DX: I25.10 Atherosclerotic heart disease of native coronary artery without angina pectoris (principal); E11.9 Type 2 diabetes mellitus without complications; Z86.16 Personal history of COVID-19; I10 Essential (primary) hypertension; E78.5 Hyperlipidemia, unspecified; Z95.5 Presence of coronary angioplasty implant and graft; Q24.5 Malformation of coronary vessels; M10.9 Gout, unspecified; Z79.82 Long term (current) use of aspirin; Z79.84 Long term (current) use of oral hypoglycemic drugs; Z79.899 Other long term (current) drug therapy
CPT/HCPCS: 36415; 80053; 85027; 92928; 93005; 99152; 99153; C1874; J7030; J7040; Q9967; C1725; C1769; C1894; C9600